=== PATIENT | male | born 1955 | race Caucasian/White ===

== ENCOUNTER 2016-08-28 22:52 | Inpatient (IN) | payer BC, MEDICARE ==
--- NOTE | ~2016-08-28 | FU ---
[facility] Nutrition Therapy DATE: 09/01/16 Patient: PRISCILLA FERNANDEZ Physician: ASHLYN Address: [address] Room/Bed: [address], Zip: [place] [address] Admit Date: 08/28/16 Date of : 59 Height: 6 0 Weight: 224 102 NUTRITION MONITORING/FOLLOW-UP: Reason: ADDENDUM TO PREVIOUS RECOMMENDATIONS/ NOTE FROM YESTERDAY 09/02 Labs: Accuchecks 158-181 (only nutritional labs updated since note 08/31) Meds: Zofran, protonix, novolog, NaCl I&O's: 1388/1351, last BM 08/31 Assessment: Chart reviewed, events noted. RD spoke with SENIOR UI WEB DEVELOPER who reports that the pt failed his LOCAL DELIVERY DRIVER re-evaluation this AM. LOCAL DELIVERY DRIVER recommends that the pt is NPO at this time, and DHT to be placed per SENIOR UI WEB DEVELOPER report. Enteral nutrition recommendations requested. RD also spoke with LOCAL DELIVERY DRIVER, who reports that the pt may require a PEG and continued LOCAL DELIVERY DRIVER. Of note, the pt was reportedly tolerating PO intake yesterday. Please see below. Recommendations: 1. Once enteral access is obtained, start Glucerna 1.5 @ 20 mL/hr + 30 mL Prostat once daily. Increase by 10 mL q 6 hrs as tolerated to goal of 50 mL/hr + 30 mL Prostat once daily. This will provide: 1900 kcals/ 114 grams protein/ 911 mL free H20 2. Continue LOCAL DELIVERY DRIVER evaluation as appropriate to determine the least restrictive diet tolerated by the pt. Status: Pt is at moderate nutritional risk. RD will continue to follow per protocol. Respectfully, RON BOYD RD, LD Food and Nutritional Services [facility] cc: client file
--- NOTE | ~2016-08-28 | US37 ---
[facility] A Service of [facility] RADIOLOGY TEXT RESULTS PATIENT: PRISCILLA FERNANDEZ LOCATION: [address]22 : [birth year] UNIT #: [id number] AGE: [address]: Yon Stubbs MD SEX: M ORDER DR: [id number] [facility] [address] [place], [place] [address] [id number] I MR#: [id number] #: [id number] NAME: PRISCILLA FERNANDEZ. : 1955 SEX: M STUDY DATE/TIME: 08/29/2016 15:16 UNIT: [facility] ROOM: [facility] STUDY DESCRIPTION: US Carotid W/Doppler Bilateral Attending Physician: Yon Stubbs M.D. Ordering Physician: Naomi Zavala M.D. Primary Care Physician: Jer Tyson M.D. MEDICAL IMAGING REPORT This report is preliminary unless electronic signature is present EXAM Ultrasound carotid Doppler bilateral. HISTORY Post-CVA, hypertension, diabetes, hyperlipidemia. CVA symptoms since 08/28/2016, with left side weakness and slurred speech at that time. COMMENT Real-time ultrasonography of the neck vessels performed centered at the level of the carotid bifurcations. COMPARISON Separate head CT 08/28 and 08/29/2016. Previous carotid Doppler ultrasound pending buddhism from 2006. FINDINGS There is at least partially calcified plaque in the right carotid system at the distal common carotid artery bulb, proximal internal and external carotid arteries. Peak systolic velocity in the right common carotid artery 0.72 m/sec measured midportion. Peak systolic velocity right internal carotid artery measured midportion is 1.21 m/sec with end-diastolic velocity of 0.24 m/sec. Peak systolic velocity right external carotid artery is 1.24 m/sec and peak systolic velocity right vertebral artery 0.28 m/sec with antegrade flow. Evaluation of the left carotid system shows partially calcified plaque distal left common carotid artery bulb, proximal internal and external carotid arteries. Peak systolic velocity measured in the left common carotid artery midportion 0.62 m/sec. Peak systolic velocity measured left internal carotid artery proximally 0.79 m/sec with end-diastolic velocity of 0.19 m/sec. Peak systolic velocity left ECA is 1.33 m/sec and peak systolic velocity STS. [facility] A Service of [facility] RADIOLOGY TEXT RESULTS PATIENT: PRISCILLA FERNANDEZ LOCATION: [facility]3 C[facility]3-22 : 59 UNIT #: [id number] AGE: [address]: Yon Stubbs MD SEX: M ORDER DR: left vertebral artery is 0.27 m/sec. IC:CC ratio on the right is 1.6 and on the left is 1.3. IMPRESSION 1. There is plaque at the bilateral carotid bifurcations. By NASCET criteria, there is less than 50% diameter stenosis at the carotid bifurcations. Disease is worse overall to the right than the left. Both vertebral arteries are patent with antegrade flow in their visualized portions. STAT * RESULT Dictated by... Teresa Robbins M.D. THIS IS AN ELECTRONICALLY VERIFIED REPORT Teresa Robbins M.D. at 08/29/2016 7:12 PM Tea TD: 08/29/2016 16:40 JOB #: [id number] MEDICAL IMAGING REPORT Page 1 of 1 COPY
--- NOTE | ~2016-08-28 | FU ---
[facility] Nutrition Therapy DATE: 09/04/16 Patient: PRISCILLA FERNANDEZ Physician: ASHLYN [address] Room/Bed: [address], Zip: [place] [address] Admit Date: 08/28/16 Date of : [birth year] Height: 6 0 Weight: 224 102 NUTRITION MONITORING/FOLLOW-UP: Reason: PT SEEN FOR FOLLOW-UP/ENTERAL NUTRITION SUPPORT DX: CVA Anthropometrics: 6'0", WT: 224# (102 KG), BMI: 30.4 -ADMIT WEIGHT: 226# (103 KG) Labs: GLU: 217, BUN: 29, CREAT: 2.2, ALB: 3.1, NA+:153 Meds: NACL, MIRALAX, LAXATIVE, PROTONIX, ZOFRAN, NOVOLOG I&O's: 9394/4931 Skin: ABRASION (L) FOREARM-PREVIOUSLY NOTED Estimated Nutrition Needs: [phone] KCAL 113-144 G PRO Assessment: CHART REVIEWED AND EVENTS NOTED. PT SEEN FOR FOLLOW-UP. PT ASLEEP AT TIME OF VISIT. FAMILY AT BEDSIDE. EN OFF AT THIS TIME 2' RESP DISTRESS NOTED. PLANS IN PLACE TO RE-START EN GLUCERNA 1.5 (RECOMMENDED BY RD ON 09/01/16). OF NOTE, TOMB MAKER HELPER FOLLOWING AND DEEMS PT NOT APPROPRIATE FOR DIET ADVANCEMENT 2' ?ASPIRATION PNA. FAMILY REPORTED NO DIET QUESTIONS AT THIS TIME. RD TO CONTINUE TO FOLLOW. Dx: INADEQUATE PROTEIN-ENERGY INTAKE R/T CHEWING/SWALLOWING DIFFICULTIES AEB TOMB MAKER HELPER CHANTELLE, RN REPORT PT CONSUMING ~30-50% OF MEALS.-ACTIVE NEW DX: INADEQUATE PROTEIN-ENERGY INTAKE R/T CURRENT CLINICAL CONDITION, ?ASP PNA AEB PT RECEIVING EN. Intervention: 1. EN OFF AT THIS TIME Monitoring, Evaluation and Goals: 1. ORAL INTAKE; CONSUME >50% OF MEALS AND SUPPLEMENTS-NOT MET 2. IMPROVE LABS; WNL-ACTIVE/IN PROGRESS 3. WEIGHTS; PREVENT UNINTENTIONAL WEIGHT LOSS-IN PROGRESS NEW GOALS: 1. ENTERAL NUTRITION; PROVIDE ~80-100% ESTIMATED NUTRIENT NEEDS AT GOAL 2. ORAL INTAKE; ADVANCE DIET PER TOMB MAKER HELPER AND CONSUME >50% OF MEALS W/NO C/O N/V/D [facility] Nutrition Therapy DATE: 09/04/16 Patient: PRISCILLA FERNANDEZ Physician: ASHLYN [address] Room/Bed: [address], Zip: [place] [address] Admit Date: 08/28/16 Date of : [birth year] Height: 6 0 Weight: 224 102 MONITOR: -TF RATE/RESIDUALS -WEIGHTS -TOMB MAKER HELPER RE-EVAL -LABS Recommendations: 1. ONCE MEDICALLY FEASIBLE, INITIATE ENTERAL NUTRITION SUPPORT OF GLUCERNA 1.5 @ 20 ML/HR, ADVANCE 10 ML q 6 HOURS TO GOAL RATE OF 50 ML/HR + SUGAR-FREE PROSTAT ONCE DAILY -PROVIDES 1900 KCAL, 114 G PRO, 912 ML FREE H20 ADD FREE H20 FLUSHES PER MD 2' HYPERNATREMIA NOTED 2. CONTINUE TOMB MAKER HELPER EVALUATION APPROPRIATE TO DETERMINE LESS RESTRICTIVE DIET TOLERATED BY PT RD WILL F/U PER PROTOCOL PT IS MODERATELY COMPROMISED Respectfully, ALVINA RODRIGUEZ MS, RD, LD Food and Nutritional Services [facility] cc: client file
--- NOTE | ~2016-08-28 | CT71 ---
[facility] A Service of [facility] RADIOLOGY TEXT RESULTS PATIENT: PRISCILLA FERNANDEZ [facility] UNIT #: [id number] AGE: [address]: Yon Stubbs MD SEX: M ORDER DR: [id number] [facility] [address] [facility]. [place], [place] [address] [id number] I MR#: [id number] Acc #: [id number] NAME: PRISCILLA FERNANDEZ. : 1955 SEX: M STUDY DATE/TIME: 09/03/2016 15:05 UNIT: [facility]2 ROOM: [facility] STUDY DESCRIPTION: CT Head Wo Contrast Attending Physician: Yon Stubbs M.D. Ordering Physician: Mary Teixeira M.D. Primary Care Physician: Jer Tyson M.D. MEDICAL IMAGING REPORT This report is preliminary unless electronic signature is present EXAM Noncontrast head CT. HISTORY 60-year-old male new onset confusion post CVA. COMPARISON 09/02/[address] exam was performed with one or more of the following radiation dose reduction techniques: automatic exposure control, adjustment of mA and/or kV according to patient size, and iterative reconstruction. FINDINGS Axial noncontrast imaging of the brain demonstrates a large focus of decreased attenuation in the distribution of the right middle cerebral artery compatible with a large acute or subacute MCA distribution infarct. There is involvement of the right head of the caudate and right basal ganglia. There is some very subtle increased attenuation along the sulci, but no definite hemorrhagic transformation. There is some mass effect with effacement of the right lateral ventricle but no midline shift. Generalized atrophy. Bony calvaria skull base unremarkable. IMPRESSION Acute or subacute MCA distribution infarct involving the right cerebral hemisphere with mild mass effect on the right lateral ventricle but no midline shift. No hemorrhagic transformation. No significant change from 09/02/2016. [facility] A Service of [facility] RADIOLOGY TEXT RESULTS PATIENT: PRISCILLA FERNANDEZ [facility] UNIT #: [id number] AGE: [address]: Yon Stubbs MD SEX: M ORDER DR: Dictated by... Jayme Brice M.D. THIS IS AN ELECTRONICALLY VERIFIED REPORT Jayme Brice M.D. at 09/03/2016 10:34 PM Mehdi TD: 09/03/2016 16:27 JOB #: [id number] MEDICAL IMAGING REPORT Page 1 of 1 COPY
--- NOTE | ~2016-08-28 | CT72 ---
[facility] A Service of [facility] RADIOLOGY TEXT RESULTS PATIENT: PRISCILLA FERNANDEZ [address] 59 UNIT #: [id number] AGE: [address]: Yon Stubbs MD SEX: M ORDER DR: [id number] [facility] [address] [facility]. [place], [place] [address] [id number] I MR#: [id number] Acc #: [id number] NAME: PRISCILLA FERNANDEZ : 1955 SEX: M STUDY DATE/TIME: 08/28/2016 22:57 [facility] [address] STUDY DESCRIPTION: CT Head Wo Contrast Stroke Attending Physician: Willie Mahoney M.D. Ordering Physician: Luan Johns D.O. Primary Care Physician: Jer Tyson M.D. MEDICAL IMAGING REPORT This report is preliminary unless electronic signature is present EXAM Head CT 08/28/2016 22:57 INDICATION Slurred speech and left side weakness since 09:00 p.m. this evening. FINDINGS Axial images were obtained from the base to the vertex without contrast. Comparison made with 05/23/2006. This CT examination was performed with one or more of the following radiation dose reduction techniques: automatic exposure control, adjustment of mA and/or kV according to patient size, and iterative reconstruction. There is generalized atrophy. Ventricular size and configuration are within normal limits. Chronic small vessel ischemic changes are present in the white matter. There is no acute infarct or hemorrhage. There are no masses. There are atherosclerotic calcifications in the carotid siphons. No skull fractures. IMPRESSION Atrophy with chronic changes in the white matter. No acute abnormalities. Dictated by... Preston Cain Jr., M.D. THIS IS AN ELECTRONICALLY VERIFIED REPORT Preston Cain Jr., M.D. at 08/29/2016 9:12 PM SRINI/len TD: 08/29/2016 07:02 JOB #: [id number] [facility] A Service of [facility] RADIOLOGY TEXT RESULTS PATIENT: PRISCILLA FERNANDEZ LOCATION: [facility] 59 UNIT #: [id number] AGE: [address]: Yon Stubbs MD SEX: M ORDER DR: MEDICAL IMAGING REPORT Page 1 of 1 COPY
--- NOTE | ~2016-08-28 | CO ---
Unit #: [id number] #: [id number] Patient: PRISCILLA BROOKS [id number] [facility]. [place] [id number] [facility]. [place], [place] [address] [id number] I MR#: [id number] NAME: PRISCILLA BROOKS. ROOM: [facility] Age: 60 Sex: M Admission Date: 08/28/2016 : 1955 Attending Physician: Yon Stubbs M.D. Primary Care Physician: Jer Tyson M.D. CONSULTATION REPORT CHIEF COMPLAINT Left-sided weakness and numbness. HISTORY OF PRESENT ILLNESS Mr. Brooks is a 60-year-old gentleman with a history of diabetes, hypertension, hyperlipidemia, chronic renal insufficiency, gastroesophageal reflux, benign prostatic hypertrophy, and obesity, who was admitted after he developed sudden onset of left-sided weakness and numbness around 8 p.m. yesterday. The patient arrived in the emergency room around [address] was obtained, which was negative and the patient received tPA around 10:50 p.m. Unfortunately, this did not result in any improvement. The patient is now admitted to the intensive care unit and continues to be weak and numb on the left side. REVIEW OF SYSTEMS GENERAL: Positive for overall decline. SKIN: Negative. HEENT: Negative. PULMONARY: Negative. CARDIOVASCULAR: Negative. GI: Positive for reflux. : Positive for urinary retention. MUSCULOSKELETAL: Positive for back pain, neck pain. NEUROLOGIC: Positive for left-sided weakness, numbness, neglect. PSYCHIATRIC: Positive for depression. PAST MEDICAL HISTORY As above and also positive for bladder stimulator, cervical spine fusion from C4 to C6, lumbar spine surgery, left knee replacement. SOCIAL HISTORY Negative for current tobacco, alcohol, or illicit drugs, however, he did smoke 2 packs per day until a year ago. FAMILY HISTORY Negative for stroke, but both parents have history of peripheral arterial disease. PHYSICAL EXAMINATION GENERAL: He is of obese appearance. HEART: Sounds are regular. NECK: There are no carotid bruits. LUNGS: Baeza are clear. EXTREMITIES: There is no peripheral edema. Unit #: [id number] #: [id number] Patient: PRISCILLA BROOKS VITAL SIGNS: Blood pressure 133/97, pulse 83, respirations 22, temperature 97.8. NEUROLOGIC: He is drowsy, but easily awakes up. He is oriented x3. He has intact language, fluency, and comprehension. Fund of knowledge is average. Memory and attention span are impaired and he has left hemineglect. Visual baeza are full. There is no papillary edema. Extraocular muscles are intact. Pupils are equal, round, and reactive to light. Facial sensation and movements are decreased on the left. Hearing to conversation speech is normal. Palate elevates symmetrically. Trapezius full strength on the right. 2+ strength on the left. Tongue protrudes midline. He is slightly dysarthric. Strength is full on the right. He has 2+ strength in the left upper and lower extremities. Muscle tone is slightly increased on the left. Muscle bulk is normal. Sensation is decreased on the left and he is unable to feel his left arm or left leg, so I am unable to perform any coordinated movement on the left, unable to ambulate. Reflexes are 1+ on the right, 3+ on the left. DIAGNOSTIC STUDIES IMAGING STUDIES: I personally reviewed his head CT and it is negative for any acute abnormalities. Repeat head CT is also negative. ASSESSMENT AND PLAN In summary, Mr. Brooks has suffered right MCA distribution stroke. His NIH stroke scale score is 13. Unfortunately, there was no improvement after tPA. He also has some hematuria after receiving tPA. We will follow post tPA protocol and start antiplatelet therapy tomorrow if his hematuria clears. We will also repeat a head CT 24 hours after he received tPA. Order a carotid ultrasound study and a 2D echocardiogram. We will ask PT/OT and Speech Therapy to evaluate. Further recommendations will be as per test results. Dictated by... Vishal Estrella/rachel TD: 08/29/2016 23:01 JOB #: [id number] CONSULTATION REPORT Page 1 of 1 X Naomi Zavala MD CONSULTATION REPORT
--- NOTE | ~2016-08-28 | CT71 ---
[facility] A Service of [facility] RADIOLOGY TEXT RESULTS PATIENT: PRISCILLA FERNANDEZ [facility]- : 59 UNIT #: [id number] AGE: [address]: Yon Stubbs MD SEX: M ORDER DR: [id number] [address] [address] [id number] I MR#: [id number] Acc #: [id number] NAME: PRISCILLA FERNANDEZ : 1955 SEX: M STUDY DATE/TIME: 09/01/2016 7:41 UNIT: [facility] ROOM: [facility] STUDY DESCRIPTION: CT Head Wo Contrast Attending Physician: Yon Stubbs M.D. Ordering Physician: Yon Stubbs M.D. Primary Care Physician: Jer Tyson M.D. MEDICAL IMAGING REPORT This report is preliminary unless electronic signature is present EXAM Head CT without contrast 09/01/2016 COMPARISON 08/31/2016 PROCEDURE Axial unenhanced head CT. This CT exam was performed with one or more of the following radiation dose reduction techniques: automatic exposure control, adjustment of mA and/or kV according to patient size, and iterative reconstruction. HISTORY Follow up right MCA territory infarct with new lethargy today. FINDINGS Redemonstrated extensive right hemispheric MCA territory infarct with mild petechial hemorrhagic conversion. No substantial change in extent of lesion, amount of petechial hemorrhage, or mass effect. No new abnormality is seen. IMPRESSION Stable minimally hemorrhagic right MCA territory infarct, slight petechial hemorrhage within the infarct but no new or increase in hemorrhage, no change in mass effect, no change in extent of lesion seen since 08/31/2016. Dictated by... Yung Ryan M.D. [facility] A Service [facility] RADIOLOGY TEXT RESULTS PATIENT: PRISCILLA FERNANDEZ [facility]ATION: [facility] 311- : 59 UNIT #: [id number] AGE: [address]: Yon Stubbs MD SEX: M ORDER DR: THIS IS AN ELECTRONICALLY VERIFIED REPORT Yung Ryan M.D. at 09/02/2016 1:19 PM OSCAR/maru TD: 09/01/2016 09:22 JOB #: [id number] MEDICAL IMAGING REPORT Page 1 of 1 COPY
--- NOTE | ~2016-08-28 | DS ---
Unit #: [id number] #: [id number] Patient: PRISCILLA FERNANDEZ [id number] [address] [address] [id number] Mickey MR#: [id number] NAME: PRISCILLA FERNANDEZ ROOM: 308 Age: 60 Sex: M Admission Date: 08/28/2016 : 1955 Discharge Date: 09/08/2016 Attending Physician: Yno Stubbs M.D. Primary Care Physician: Jer Tyosn M.D. DISCHARGE SUMMARY ADDENDUM Since the time of the last dictation, patient had planned and had been accepted to inpatient hospice and will be under their care. I was called into the patient's room around 10:15 this morning. Patient had . Dictated by.Darling. Maryanne Kasper PA-C for Vishal Iyer/marco TD: 09/09/2016 08:01 JOB #: [id number] DISCHARGE SUMMARY Page 1 of 1 X X DISCHARGE SUMMARY
--- NOTE | ~2016-08-28 | CT71 ---
[facility] A Service of [facility] RADIOLOGY TEXT RESULTS PATIENT: PRISCILLA FERNANDEZ LOCATION: [facility] 311-01 : 59 UNIT #: [id number] AGE: [address]: Yon Stubbs MD SEX: M ORDER DR: [id number] [facility] [address] [facility]. [place], [place] [address] [id number] I MR#: [id number] Acc #: [id number] NAME: PRISCILLA FERNANDEZ : 1955 SEX: M STUDY DATE/TIME: 08/31/2016 9:12 UNIT: [facility] ROOM: [facility] STUDY DESCRIPTION: CT Head Wo Contrast Attending Physician: Yon Stubbs M.D. Ordering Physician: Yon Stubbs M.D. Primary Care Physician: Jer Tyson M.D. MEDICAL IMAGING REPORT This report is preliminary unless electronic signature is present EXAM Head CT, no contrast, dated 08/31/2016 PROCEDURE Axial unenhanced head CT. This CT exam was performed with one or more of the following radiation dose reduction techniques: automatic exposure control, adjustment of mA and/or kV according to patient size, and iterative reconstruction. COMPARISON Prior head CT 08/29/2016 CLINICAL HISTORY Left side weakness and slurred speech, status post TPA infusion. FINDINGS There is very slight petechial hemorrhage within the extensive right MCA territory infarct. Area of involvement appears substantially larger than initially suggested by the head CT on 08/29/2016. There is no masslike hemorrhage. Midline shift is barely perceptible but mass effect is clearly increased since 08/29/2016. There are underlying chronic small vessel type white matter changes which appear minimal. IMPRESSION More extensive right hemispheric infarct is evident when compared to the initial head CT, with involvement more confluently of a broader area of a right MCA territory including the right caudate head. There is mild petechial hemorrhagic conversion but no masslike hemorrhage. There is local sulcal effacement and barely perceptible leftward midline shift. No [facility] A Service [facility] RADIOLOGY TEXT RESULTS PATIENT: PRISCILLA FERNANDEZ LOCATION: [facility] 311-01 : 59 UNIT #: [id number] AGE: [address]: Yon Stubbs MD SEX: M ORDER DR: contralateral ischemic injury is seen. Dictated by... Yung Ryan M.D. THIS IS AN ELECTRONICALLY VERIFIED REPORT Yung Ryan M.D. at 09/02/2016 1:22 PM OSCAR/octavia TD: 08/31/2016 13:12 JOB #: [id number] MEDICAL IMAGING REPORT Page 1 of 1 COPY
--- NOTE | ~2016-08-28 | CT72 ---
[facility] A Service of [facility] RADIOLOGY TEXT RESULTS PATIENT: PRISCILLA FERNANDEZ LOCATION: [address] : 59 UNIT #: [id number] AGE: [address]: Yon Stubbs MD SEX: M ORDER DR: [id number] [facility] [address] [facility]. [place], [place] [address] [id number] I MR#: [id number] Acc #: [id number] NAME: PRISCILLA FERNANDEZ. : 1955 SEX: M STUDY DATE/TIME: 08/29/2016 02:30 UNIT: [facility] ROOM: [facility] STUDY DESCRIPTION: CT Head Wo Contrast Stroke Attending Physician: Yon Stubbs M.D. Ordering Physician: Luan Johns D.O. Primary Care Physician: Jer Tyson M.D. MEDICAL IMAGING REPORT This report is preliminary unless electronic signature is present EXAM Head CT 08/29/2017 02:30 INDICATION New left-sided weakness and slurred speech. Symptoms worsening since the previous scan earlier in the evening. Patient is status post TPA administration. FINDINGS Axial images were obtained from the base to the vertex without contrast. Comparison made with 08/28/2016 at 22:57. [address] CT examination was performed with one or more of the following radiation dose reduction techniques: automatic exposure control, adjustment of mA and/or kV according to patient size, and iterative reconstruction. Atrophy is again seen with chronic small vessel ischemic disease in the white matter. Once again, no acute infarct or hemorrhage is seen. There are no masses. IMPRESSION No acute hemorrhage or stroke identified. No change from the recent prior exam. Dictated by... Preston Cain Jr., M.D. THIS IS AN ELECTRONICALLY VERIFIED REPORT Preston Cain Jr., M.D. at 08/29/2016 9:14 PM SRINI/len TD: 08/29/2016 10:50 [facility] A Service [facility] RADIOLOGY TEXT RESULTS PATIENT: PRISCILLA FERNANDEZ LOCATION: [facility] 59 UNIT #: [id number] AGE: [address]: Yon Stubbs MD SEX: M ORDER DR: JOB #: [id number] MEDICAL IMAGING REPORT Page 1 of 1 COPY
--- NOTE | ~2016-08-28 | CO ---
Unit #: [id number] #: [id number] Patient: PRISCILLA FERNANDEZ [id number] [address] [address] [id number] I MR#: [id number] NAME: PRISCILLA FERNANDEZ. ROOM: 311 Age: 60 Sex: M Admission Date: 08/28/2016 : 1955 Attending Physician: Yon Stubbs M.D. Primary Care Physician: Jer Tyson M.D. CONSULTATION REPORT REASON FOR CONSULTATION Dysphagia, PEG tube placement. HISTORY OF PRESENTING ILLNESS Patient is a 60-year-old male who presented with left-sided weakness and was found to have an acute CVA. He is now having worsening dysphagia and we have been consulted for a PEG tube. Patient is arousable to voice; however, is somewhat lethargic. He denies any nausea, vomiting, or abdominal pain. PAST MEDICAL HISTORY Notable for chronic kidney disease, diabetes, hypertension, dyslipidemia, BPH, GERD, previous left total knee arthroplasty in 2005, bladder stimulator placement, and multiple back surgeries in the past. HOME MEDICATIONS 1. Levemir. 2. Flomax. 3. Lyrica. 4. Amitriptyline. 5. Bystolic. 6. Lipitor. 7. Macrobid. 8. Cyclobenzaprine. 9. Promethazine. 10. Protonix. 11. Oxycodone. ALLERGIES None known. SOCIAL HISTORY Patient is a reformed smoker x1 year. Denies tobacco and alcohol use. Patient lives at home with his . FAMILY HISTORY Notable for peripheral arterial disease. REVIEW OF SYSTEMS A complete 10-point review of systems was negative, except what was mentioned in the HPI. PHYSICAL EXAM GENERAL: Patient is a somewhat lethargic, 60-year-old, male who Unit #: [id number] #: [id number] Patient: PRISCILLA FERNANDEZ appears in no acute distress. VITAL SIGNS: Temperature is 100.3, pulse is 76, respirations 22, and blood pressure is elevated at 177/52. HEENT: PERRLA. NECK: Supple. CARDIAC: S1 and S2. LUNGS: Clear to auscultation. ABDOMEN: Soft, rounded, nontender, and nondistended. Positive bowel sounds. NEURO: Patient is lethargic, but arousable. DIAGNOSTIC STUDIES LABORATORY: Labs are from yesterday. Glucose is 153; BUN and creatinine are 21 and 2.3, respectively; otherwise, chemistry is normal. White count is 14.1 yesterday, hemoglobin is 11.1, hematocrit 34.4, and platelets are 379. ASSESSMENT AND PLAN 1. Worsening dysphagia. Will plan PEG tube placement for tomorrow. Continue NPO status for now. 2. Acute CVA. Management per neurology. Thank you for this interesting consult and will continue to follow along. Dictated by... Bebe Villa A.P.R.N. for Vishal Cabello/marco TD: 09/02/2016 06:53 JOB #: [id number] CONSULTATION REPORT Page 1 of 1 X X CONSULTATION REPORT
--- NOTE | ~2016-08-28 | OR ---
Unit #: [id number] #: [id number] Patient: PRISCILLA FERNANDEZ [id number] [facility]. [place], [place] [address] [id number] I MR#: [id number] NAME: PRISCILLA FERNANDEZ ROOM: 311 Date of Procedure: 09/02/2016 Admission Date: 08/28/2016 Surgeon: Amilcar Mondragon M.D. : 1955 Attending Physician: Yon Stubbs M.D. Primary Care Physician: Jer Tyson M.D. OPERATIVE REPORT PROCEDURE PERFORMED Esophagogastroduodenoscopy with percutaneous endoscopic gastrostomy tube placement. INDICATIONS FOR PROCEDURE The patient with recent stroke, now with dysphagia and aspiration risk, undergoing evaluation with EGD and possible PEG tube placement. MEDICATIONS Monitored anesthesia. POSTOPERATIVE FINDINGS 1. Normal esophagus. 2. Mild gastritis. It appears the patient may have had previous antrectomy. 3. Normal duodenum and distal duodenum. 4. Successful placement of PEG tube by push method. PLAN Please see inpatient orders for details. DESCRIPTION OF PROCEDURE The patient was explained of the procedure, risks, and benefits along with risks and benefits of anesthesia. He was brought to the endoscopy room. Propofol anesthesia was given. Bite block was placed. The scope was passed down the mouth into the esophagus, stomach, duodenum, and distal duodenum. Exam was completed. A spot was identified for G-tube now at this point with indentation and transillumination. Skin was prepped. Small incision was made after local anesthetic was given. Trocar cannula was then passed through this incision. A guidewire passed through this trocar and pulled out of the patient's mouth using the scope and the snare from the inside. A push method tube was then pushed over the wire, pulled out of the anterior abdominal wall, where it was secured with an external bumper. The scope was reintroduced to look at the inner bumper, which was nicely in place. Gently, it was pulled out. He tolerated it well. Dictated by... Vishal Cabello/rachel Unit #: [id number] #: [id number] Patient: PRISCILLA FERNANDEZ TD: 09/02/2016 22:28 JOB #: [id number] OPERATIVE REPORT Page 1 of 1 X Amilcar Mondragon MD PROCEDURE OPERATIVE NOTE
--- NOTE | ~2016-08-28 | DS ---
Unit #: [id number] #: [id number] Patient: PRISCILLA FERNANDEZ [id number] [address] [address] [id number] I MR#: [id number] NAME: PRISCILLA FERNANDEZ ROOM: 308 Age: 60 Sex: M Admission Date: 08/28/2016 : 1955 Discharge Date: 09/07/2016 Attending Physician: Yon Stubbs M.D. Primary Care Physician: Jer Tyson M.D. DISCHARGE SUMMARY DISCHARGE DIAGNOSES 1. 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 2. Sepsis either due to urine or aspiration pneumonia. 3. Acute kidney injury with chronic stage 3 kidney disease. 4. Dysphagia. 5. Left-sided hemiparesis. 6. Type 2 diabetes. 7. Essential hypertension. 8. Dyslipidemia. 9. Benign prostatic hypertrophy. 10. Gastroesophageal reflux disease. CONSULTANTS 1. Dr. Zavala and Dr. Teixeira of neurology. 2. Dr. Mondragon of gastroenterology. 3. Dr. Huang Reece and Dr. Jenkins of pulmonary. 4. Dr. Boudreaux of urology. PROCEDURES Patient had PEG placement by Dr. Mondragon on 09/02/16 due to dysphagia. DIAGNOSTIC STUDIES IMAGING: CT head without contrast, 08/28/16. Impression - No acute abnormalities. CT head again on 08/28/16. Impression - No change from the recent prior exam. Bilateral carotid ultrasound on . Impression - Plaque bilaterally at the carotid bifurcations, less than 50% diameter stenosis. CT head without contrast on 08/29/16. Impression - Large right MCA distribution subacute infarct. No associated hemorrhage or mass effect. Chest x-ray, 08/30/16. Impression - No acute findings and no active disease in the chest. Chest CT, 08/31/16. Impression - Clear. No pneumothorax. Head CT, 08/31/16. Impression - More extensive right hemispheric infarct. Mild petechial hemorrhage conversion but no masslike hemorrhage. No contralateral ischemic injury is seen. Head CT, 09/01/16. Stable minimally hemorrhagic right MCA territory Unit #: [id number] #: [id number] Patient: PRISCILLA FERNANDEZ infarct. Slight petechial hemorrhage within the infarct but no new or increase in hemorrhage. No change in mass effect. No change in extent of lesion. X-ray abdomen, 09/01/16. Dobbhoff in good position. Head CT on 09/02/16. Impression - Large right MCA distribution infarct is unchanged. CT chest, 09/03/16. Impression - Chronic interstitial opacities in both lungs. Minimal basilar atelectasis. No focal consolidation. Abnormal appearance of left kidney. CT, 09/03/16. Acute to subacute MCA distribution infarct involving the right cerebral hemisphere with mild mass effect in the right lateral ventricle but no midline shift. No hemorrhagic transformation. No significant change. CT abdomen and pelvis, 09/03/16. Impression - Diffuse fatty infiltration of the liver. Mild nonspecific perinephric stranding and mild bilateral hydronephrosis and hydroureter. Perinephric stranding can be seen with chronic renal disease. Mild hydro demonstrates no identifiable etiology. Velez catheter is seen within the decompressed bladder. Small calcification noted adjacent to the catheter, probably within the soft tissues. Ureteral stone considered less likely. L1 compression fracture, which appears chronic. CT head, 09/05/16. Impression - Stable appearance of subacute large right MCA distribution infarct with diffuse low density change throughout the infarcted territory and associated sulcal effacement indicating persistent edema. Minimal curvilinear areas of relative increased attenuation within the infarct suggest minimal associated petechial cortical hemorrhage, and these are unchanged compared to 09/01/2016. Stable infarcts extension into the right caudate head and body and adjacent right periventricular deep white matter. HOSPITAL COURSE Patient is a pleasant 60-year-old male with past medical history of chronic kidney disease, diabetes, essential hypertension, dyslipidemia, BPH, GERD. Patient self cathed at home following right knee arthroplasty about 2 years ago. Was brought to the emergency room due to left-sided weakness, which was sudden onset in nature, as well as ataxia. CT head was done, which was negative, but due to the patient's significant neurological exam, TPA was administered under the recommendations of neurology. Patient is unable to do an MRI because he does have history of bladder stimulator, and it was questionable if it was compatible with an MRI machine. CTA was not done secondary to chronic kidney disease with increased creatinine of 2.9. Patient was admitted for left-sided hemiparesis due to right MCA. Was seen in consultation with neurology. Patient's neurological exam would wax and wane with some improvement at times and no improvement at other times. A NATHAN was done, which was technically very limited study. Valves were not visualized. The left ventricular systolic function is (1) estimated ejection fraction of 55% to 60%. Bubble study was performed. No shunt was noted across the interatrial septum. Mild mitral regurgitation was present. Small pericardial effusion versus fat tissue. Bilateral carotid ultrasound was done given his inability to receive contrast, which Unit #: [id number] #: [id number] Patient: PRISCILLA FERNANDEZ had minimal plaque disease of less than 50%. Dr. Zavala of neurology felt it was best at that time to focus on recuperation in terms of rehab. Dr. Mondragon of gastroenterology was consulted given the patient's waxing neurological status and inability to safely swallow. A PEG tube was placed by Dr. Mondragon on 09/02/16, which was successful. Patient then started to develop low-grade fever. Patient, at first, did not require oxygen with breath sounds unremarkable. X-ray revealed no infiltrate. Blood culture and urine culture were all negative without growth. We initially did not start patient on antibiotics, but following the PEG tube placement, patient had significant fever documented at 101, as well as worsening mental status. Many repeat head CTs were done to evaluate for possible encephalomalacia or intracranial edema, which was not evident. This was truly difficult to further assess due to the patient's bladder stimulator, which was not compatible with the MRI. Dr. Boudreaux of urology was consulted given the patient's high fever, as well as gross hematuria in the Velez. Dr. Boudreaux thought that there was too much risk to proceed with any stents; therefore, patient did not undergo any treatment for stones. CT abdomen and pelvis was done, which had findings stated above. With the patient's persistent encephalopathy and CT head with slow progressive evidence of small hemorrhagic conversion, it was, therefore, felt best, under neurology's recommendation, to transfer patient to [facility] where an MRI could be performed, but at this time, patient's status continues to decline. It was eventually decided by his that it is in the patient's best interest that we continue with comfort measure care only, as she states that the patient would never want to live in this state with hemiparesis, tube feeds and bedridden. Therefore, at this time, manufacturing planner is planning to meet with Hospice for patient to be transferred to inpatient Hospice under their care. DISCHARGE CONDITION/DISPOSITION Stable to inpatient Hospice. DISCHARGE MEDICINES 1. Robinul 0.4 mg IV q.4 hours as needed for increase in secretions. 2. Ativan 1 mg IV q.2 hours as needed for agitation and/or anxiety. 3. Morphine 2-4 mg IV q.2 hours as needed for pain. NOTE: This dictation took 45 minutes, including patient education and to coordinate care. Dictated by... Maryanne Kasper PA-C for Vishal Iyer/monisha TD: 09/07/2016 11:07 JOB #: [id number] Unit #: [id number] #: [id number] Patient: PRISCILLA FERNANDEZ DISCHARGE SUMMARY Page 1 of 1 X X DISCHARGE SUMMARY
--- NOTE | ~2016-08-28 | EKG ---
PATIENT: PRISCILLA FERNANDEZ UNIT #: [id number] Ventricular Rate: 71 BPM Atrial Rate: 71 BPM P-R Interval: 168 ms QRS Duration: 84 ms Q-T Interval: 408 ms QTC Calculation(Bezet): 443 ms P Boston: 78 degrees Calculated R Boston: 59 degrees Calculated T Boston: 42 degrees Diagnosis Line: Motion artifact Diagnosis Line: ST no longer elevated in Inferior leads Diagnosis Line: Confirmed by PRO LINARES MD ([id number]) on Diagnosis Line: 08/31/2016 8:34:44 AM INTERPRETING MD: MILAGROS SANTAMARIA
--- NOTE | ~2016-08-28 | CT71 ---
[facility] A Service of [facility] RADIOLOGY TEXT RESULTS PATIENT: PRISCILLA FERNANDEZ LOCATION: [facility] SAULT : 59 UNIT #: [id number] AGE: [address]: Yon Stubbs MD SEX: M ORDER DR: [id number] [facility]. [place], [place] [address] [id number] I MR#: [id number] Acc #: [id number] NAME: PRISCILLA FERNANDEZ : 1955 SEX: M STUDY DATE/TIME: 09/02/2016 19:17 UNIT: A PCU ROOM: [facility] STUDY DESCRIPTION: CT Head Wo Contrast Attending Physician: Yon Stubbs M.D. Ordering Physician: Mary Teixeira M.D. Primary Care Physician: Jer Tyson M.D. MEDICAL IMAGING REPORT This report is preliminary unless electronic signature is present EXAM CT head INDICATIONS Weakness for 5 days. Right MCA distribution infarct. TECHNIQUE CT of the head without contrast. This CT exam was performed with one or more of the following radiation dose reduction techniques: automatic control, adjustment of mA and/or kV according to patient size, and iterative reconstruction. COMPARISON CT head dated 09/01/2016 and 08/31/2016. FINDINGS A large distribution right MCA infarct is unchanged from the prior study. The infarct involves portions of the right temporal lobe, large portion of the right frontal lobe, and a large portion of the right parietal lobe. No hemorrhagic transformation. The infarct extends into the right basal ganglia and right caudate. Ventricles and basilar cisterns are within normal limits. There is no midline shift. There is no extraaxial collections. IMPRESSION 1. Large right MCA distribution infarct is unchanged from the 09/01/2016 comparison. Dictated by... Ramirez Long M.D. THIS IS AN ELECTRONICALLY VERIFIED REPORT [facility] A Service of [facility] & [facility] RADIOLOGY TEXT RESULTS PATIENT: PRISCILLA FERNANDEZ LOCATION: [facility] SAULT : 59 UNIT #: [id number] AGE: [address]: Yon Stubbs MD SEX: M ORDER DR: Ramirez Long M.D. at 09/02/2016 9:46 PM RPC/rnr TD: 09/02/2016 20:28 JOB #: [id number] MEDICAL IMAGING REPORT Page 1 of 1 COPY
--- NOTE | ~2016-08-28 | CT71 ---
[facility] A Service of [facility] RADIOLOGY TEXT RESULTS PATIENT: PRISCILLA FERNANDEZ LOCATION: [place] [address]-22 : 59 UNIT #: [id number] AGE: [address]: Yon Stubbs MD SEX: M ORDER DR: [id number] [facility] [address]. [place], [place] [address] [id number] MR#: [id number] Acc #: [id number] NAME: PRISCILLA FERNANDEZ : 1955 SEX: M STUDY DATE/TIME: 08/29/2016 23:12 UNIT: [facility] ROOM: [facility] STUDY DESCRIPTION: CT Head Wo Contrast Attending Physician: Yon Stubbs M.D. Ordering Physician: Naomi Zavala M.D. Primary Care Physician: Jer Tyson M.D. MEDICAL IMAGING REPORT This report is preliminary unless electronic signature is present EXAM Head CT, 08/29 at 23:12 INDICATIONS Stroke, status post tPA. Slurred speech, left side weakness since last night. FINDINGS Axial images were obtained from the base to the vertex without contrast. Comparison made with head CT from 08/29/2016. This CT exam was performed with one or more of the following radiation dose reduction techniques: Automatic exposure control, adjustment of mA and/or kV according to patient size, and iterative reconstruction. There is a right subacute MCA distribution infarct now noted. This involves the temporal lobe and frontal lobe and probably a small portion of the parietal lobe. No evidence of hemorrhagic transformation. No mass effect is seen. Ventricular size and configuration remain normal. IMPRESSION Relatively large right MCA distribution subacute infarct. No associated hemorrhage or mass effect. Dictated by... Preston Cain Jr., M.D. THIS IS AN ELECTRONICALLY VERIFIED REPORT Preston Cain Jr., M.D. at 08/30/2016 9:22 PM SRINI/blanca TD: 08/30/2016 16:48 JOB #: [id number] [facility] A Service of [facility] RADIOLOGY TEXT RESULTS PATIENT: PRISCILLA FERNANDEZ [facility]ATION: [facility] UNIT #: [id number] AGE: [address]: Yon Stubbs MD SEX: M ORDER DR: MEDICAL IMAGING REPORT Page 1 of 1 COPY
--- NOTE | ~2016-08-28 | CT71 ---
[facility] A Service of [facility] & [facility] RADIOLOGY TEXT RESULTS PATIENT: PRISCILLA FERNANDEZ LOCATION: [facility] 308-01 : 59 UNIT #: [id number] AGE: [address]: Yon Stubbs MD SEX: M ORDER DR: [id number] [facility] [address]. [place], [place] [address] [id number] I MR#: [id number] Acc #: [id number] NAME: PRISCILLA FERNANDEZ : 1955 SEX: M STUDY DATE/TIME: 09/05/2016 14:10 UNIT: [facility] ROOM: [facility] STUDY DESCRIPTION: CT Head Wo Contrast Attending Physician: Yon Stubbs M.D. Ordering Physician: Mary Teixeira M.D. Primary Care Physician: Jer Tyson M.D. MEDICAL IMAGING REPORT This report is preliminary unless electronic signature is present EXAM CT brain without contrast. HISTORY Left-side weakness. Cerebral infarct, in the right MCA distribution, recently noted. Post tPA. TECHNIQUE This CT exam was performed with one or more of the following radiation dose reduction techniques: automatic exposure control, adjustment of mA and/or kV according to patient size, and iterative reconstruction. FINDINGS CT brain without contrast is compared to 09/03/2016, and demonstrates stable large subacute right MCA distribution infarct with predominately low-density change throughout the majority of the right MCA distribution, and several small curvilinear areas of relative increased attenuation within the infarcted distribution, suggesting probable minimal associated petechial hemorrhage, unchanged compared to 09/01/2016. The infarct involves the right caudate head and body as well, and adjacent deep white matter. No midline shift. Stable sulcal effacement within the right MCA infarct distribution indicating associated edema. IMPRESSION Stable appearance of subacute large right MCA distribution infarct with diffuse low density change throughout the infarcted territory and associated sulcal effacement indicating persistent edema. Minimal curvilinear areas of relative increased attenuation within the infarct suggest minimal associated petechial cortical hemorrhage, and these are unchanged compared to 09/01/2016. Stable infarcts extension into the right caudate head and body and adjacent right periventricular deep white matter. [facility] A Service of [facility] & [facility] RADIOLOGY TEXT RESULTS PATIENT: PRISCILLA FERNANDEZ LOCATION: A 308-01 : [birth year] UNIT #: [id number] AGE: [address]: Yon Stubbs MD SEX: M ORDER DR: Dictated by... Akshat Bhatia M.D. THIS IS AN ELECTRONICALLY VERIFIED REPORT Akshat Bhatia M.D. at 09/05/2016 10:36 PM WAQAR/zainab TD: 09/05/2016 16:34 JOB #: [id number] MEDICAL IMAGING REPORT Page 1 of 1 COPY
--- NOTE | ~2016-08-28 | CR6 ---
[facility] A Service of [facility] RADIOLOGY TEXT RESULTS PATIENT: PRISCILLA FERNANDEZ LOCATION: [facility] 311- : [birth year] UNIT #: [id number] AGE: [address]: Yon Stubbs MD SEX: M ORDER DR: [id number] [facility] [address] [place], [place] [address] [id number] I MR#: [id number] Acc #: [id number] NAME: PRISCILLA FERNANDEZ. : 1955 SEX: M STUDY DATE/TIME: 09/01/2016 17:28 UNIT: [address] ROOM: [facility] STUDY DESCRIPTION: CR Abdomen Portable Sng View Attending Physician: Yon Stubbs M.D. Ordering Physician: Amilcar Mondragon M.D. Primary Care Physician: Jer Tyson M.D. MEDICAL IMAGING REPORT This report is preliminary unless electronic signature is present EXAM Portable KUB HISTORY Dobbhoff tube placement. TECHNIQUE Single view of the abdomen was obtained. FINDINGS Dobbhoff tube tip is in good position over the mid stomach. The bowel gas pattern is normal. STAT * RESULT Dictated by... Preston Mccord M.D. THIS IS AN ELECTRONICALLY VERIFIED REPORT Preston Mccord M.D. at 09/01/2016 10:17 PM RLF/pcl TD: 09/01/2016 18:23 JOB #: [id number] MEDICAL IMAGING REPORT Page 1 of 1 COPY
--- NOTE | ~2016-08-28 | HP ---
Unit #: [id number] #: [id number] Patient: PRISCILLA FERNANDEZ [id number] [address] [place], [place] [address] [id number] I MR#: [id number] NAME: PRISCILLA FERNANDEZ. ROOM: [facility] Age: 60 Sex: M Admission Date: 08/29/2016 : 1955 Attending Physician: Yon Stubbs M.D. Primary Care Physician: Jer Tyson M.D. HISTORY AND PHYSICAL CHIEF COMPLAINT Left side weakness. HISTORY OF PRESENT ILLNESS This is a 60-year-old gentleman who has a past medical history of acid reflux, chronic kidney disease, diabetes, hypertension, dyslipidemia, benign prostatic hypertrophy, brought to the emergency room with chief complaint of having all of a sudden onset of left-sided weakness, mainly in the left arm with left side neglect, ataxia. The patient in the ER has a CT scan which was negative but patient recent tPA and cannot do MRI secondary to patient with history of bladder stimulator. CTA was not done secondary to increased creatinine. Eventually has been admitted. He denied chest pain, denies nausea or vomiting, fever or chills, or cough. He said his symptoms started all of a sudden yesterday around 8:30 p.m. with left side weakness, mainly in the left arm. Left leg has mild weakness. PAST MEDICAL HISTORY 1. History of chronic kidney disease. 2. Diabetes. 3. Hypertension. 4. Dyslipidemia. 5. Benign prostatic hypertrophy. 6. GERD. PAST SURGICAL HISTORY 1. Left total knee arthroplasty 2005. 2. History of bladder stimulator. 3. History of cervical fusion C4 to C6. 4. History of back surgery. HOME MEDICATIONS 1. Levemir 10 units daily. 2. Flomax 0.4 mg daily. 3. Lyrica 150 mg t.i.d. 4. Amitriptyline 10 mg h.s. 5. Bystolic 5 mg daily. 6. Lipitor 10 mg daily. 7. Macrobid 100 mg b.i.d. 8. Cyclobenzaprine 10 mg daily. 9. Promethazine 25 mg q.6 h. p.r.n. 10. Protonix 40 mg daily. 11. Oxycodone 10/325 one tablet 6 times per day. Unit #: [id number] #: [id number] Patient: PRISCILLA FERNANDEZ ALLERGIES No known drug allergies. SOCIAL HISTORY He used to smoke two packs per day for 30 years, he quit one year ago. No history of alcohol, no illicit drug use. FAMILY HISTORY Father and mother have history of peripheral arterial disease. REVIEW OF SYSTEMS All review of systems are negative except as in history of present illness. PHYSICAL EXAMINATION VITAL SIGNS: Temperature 99.4, heart rate 85, respiratory rate 18, blood pressure 171/99, oxygen saturation 99% on room air. GENERAL: Middle-aged man lying in the bed, comfortably, currently not in any distress. He is alert, awake, oriented x3. HEENT: Pupils are equal and reactive to light and accommodation. Head is normocephalic, atraumatic. NECK: Supple. No JVD. LUNGS: Clear to auscultation bilaterally. No rhonchi, no wheezing. HEART: S1, S2. Regular rate and rhythm. ABDOMEN: Soft, nontender, nondistended. Bowel sounds positive. EXTREMITIES: Normal. No cyanosis, clubbing, or edema. NEUROLOGIC: Left arm power is 2/5, right arm is 5/5. Left lower extremity power is 4/5, right side is 5/5. Cranial nerves II-XII intact. DIAGNOSTIC STUDIES LABORATORY: Sodium 132, potassium 3.4, chloride 99, glucose 399, BUN 21, creatinine 2.90. INR 1. White count 12, hemoglobin 12, hematocrit 36, platelets 409. IMAGING: CT head no acute findings. ASSESSMENT AND PLAN 1. Cerebrovascular accident with left side weakness. Patient received tPA. Will be admitted to ICU. Cannot do MRI secondary to patient has a bladder stimulator. Cannot do CTA secondary to increased creatinine. Neurology, Dr. Teixeira and to evaluate. 2. History of chronic back pain. 3. History of gastroesophageal reflux disease. 4. Chronic kidney disease. 5. Diabetes. 6. Hypertension. 7. Dyslipidemia. 8. Benign prostatic hypertrophy. 9. DVT prophylaxis. Will place the patient on SCDs. Dictated by Willie Mahoney M.D. LENNY/jarred TD: 08/29/2016 12:02 JOB #: [id number] Unit #: [id number] #: [id number] Patient: PRISCILLA FERNANDEZ HISTORY AND PHYSICAL Page 1 of 1 X X HISTORY AND PHYSICAL
--- NOTE | ~2016-08-28 | CR72 ---
[facility] A Service of [facility] & [facility] RADIOLOGY TEXT RESULTS PATIENT: PRISCILLA FERNANDEZ LOCATION: [place] [id number] : [birth year] UNIT #: [id number] AGE: [address]: Yon Stubbs MD SEX: M ORDER DR: [id number] [facility] [address] [facility]. [place], [place] [address] [id number] I MR#: [id number] Acc #: [id number] NAME: PRISCILLA FERNANDEZ : 1955 SEX: M STUDY DATE/TIME: 08/31/2016 0342 UNIT: [facility] ROOM: [facility] STUDY DESCRIPTION: CR Chest Single View Portable Attending Physician: Yon Stubbs M.D. Ordering Physician: Yon Stubbs M.D. Primary Care Physician: Jer Tyson M.D. MEDICAL IMAGING REPORT This report is preliminary unless electronic signature is present EXAM Portable chest, 08/31 at 0342. INDICATION Left side weakness with congestion and shortness of air for the last 3 days. FINDINGS AP portable chest is compared with 08/30/2016. Cardiomegaly is stable. Minimal if any interstitial infiltrate left base. Lungs otherwise are clear. No pneumothorax. Dictated by... Preston Cain Jr., M.D. THIS IS AN ELECTRONICALLY VERIFIED REPORT Preston Cain Jr., M.D. at 08/31/2016 5:19 PM SRINI/moon TD: 08/31/2016 10:55 JOB #: [id number] MEDICAL IMAGING REPORT Page 1 of 1 COPY
--- NOTE | ~2016-08-28 | CO ---
Unit #: [id number] #: [id number] Patient: PRISCILLA FERNANDEZ [id number] [address] [address] [id number] I MR#: [id number] NAME: PRISCILLA FERNANDEZ. ROOM: [facility] Age: 60 Sex: M Admission Date: 08/28/2016 : 1955 Attending Physician: Yon Stubbs M.D. Primary Care Physician: Jer Tyson M.D. Consultation Date: 09/03/2016 CONSULTATION REPORT REASON FOR CONSULT ICU management. HISTORY OF PRESENT ILLNESS This is a 60-year-old male with past medical history significant for acute ischemic CVA a few days ago who was transferred to the ICU from the floor as a Rapid Response. Apparently, the patient presented to the ER a few days ago with left-sided neglect and ataxia. Patient underwent PEG placement yesterday and since then he became unresponsive. His condition deteriorated overnight with respiratory distress, tachypnea, and concern for aspiration. The patient was transferred to our ICU for further evaluation and management. The patient currently is unresponsive. He is posturing on the left side and withdrawing to pain on the right side. He is tachypneic. No fever or chills. PAST MEDICAL HISTORY 1. Chronic kidney disease. 2. Diabetes. 3. Hypertension. 4. Hyperlipidemia. 5. Benign prostatic hypertrophy. 6. GERD. PAST SURGICAL HISTORY 1. Left total knee arthroplasty. 2. Bladder stimulator. 3. Cervical fusion C4 to C6. 4. History of back surgery. HOME MEDICATIONS 1. Levemir. 2. Flomax. 3. Lyrica. 4. Amitriptyline. 5. Bystolic. 6. Lipitor. 7. Macrobid. 8. Cyclobenzaprine. 9. Promethazine. 10. Protonix. Unit #: [id number] #: [id number] Patient: PRISCILLA FERNANDEZ 11. Oxycodone. ALLERGIES No known drug allergies. SOCIAL HISTORY Patient used to smoke two packs per day for 30 years. He quit one year ago. No history of alcohol or drug abuse. FAMILY HISTORY Peripheral vascular disease. REVIEW OF SYSTEMS Unable to obtain as he is confused and lethargic. PHYSICAL EXAMINATION VITAL SIGNS: Temperature 102.3, heart rate 99, respiratory rate 28, blood pressure 141/73. HEENT: Atraumatic, normocephalic. PERRLA. EOMI. NECK: Supple. No JVD. No lymphadenopathy. LUNGS: Fine rhonchi in the upper airways. HEART: S1, S2. No murmur, gallops or rubs. ABDOMEN: Soft, nontender. Bowel sounds are positive. No hepatosplenomegaly. EXTREMITIES: Left side posturing. Right side withdrawing to pain. NEUROLOGIC: Patient is lethargic and not responding to verbal stimuli. SKIN: No rashes. DIAGNOSTIC STUDIES LABORATORY: Creatinine 2.2, sodium 146, CO2 is 16. White blood cell count 17.1. IMAGING: CT chest is noted and is unremarkable. ASSESSMENT 1. Toxic metabolic encephalopathy. 2. Urinary tract infection. 3. Ordrc-zb-fkuwwsv kidney disease. 4. Acute ischemic cerebrovascular accident. 5. Chronic anemia. 6. Possible hydronephrosis. PLAN 1. Patient will be watched in the ICU very closely. No need for intubation at this point but will continue to reassess periodically. 2. Will obtain STAT lactic acid, noting that his bicarb has been trending down over the last 24 hours. 3. Start patient on Zosyn for possible UTI. 4. Start patient on bronchodilator. 5. Will keep patient n.p.o. given his mental status. 6. Will change IV fluid to include bicarb. 7. Followup CT chest. 8. DVT prophylaxis. Critical care time spent on this patient was 33 minutes. Unit #: [id number] #: [id number] Patient: REBECCAPRISCILLA Critical time spent on this patient was minutes. Dictated by... Vishal Howard TD: 09/03/2016 21:02 JOB #: [id number] CONSULTATION REPORT Page 1 of 1 X MICHAEL ALBERT MD CONSULTATION REPORT
--- NOTE | ~2016-08-28 | CT4 ---
[facility] A Service of [facility] & [facility] RADIOLOGY TEXT RESULTS PATIENT: PRISCILLA FERNANDEZ LOCATION: [address]- : [birth year] UNIT #: [id number] AGE: [address]: Yon Stubbs MD SEX: M ORDER DR: [id number] [facility] [address] [facility]. [place], [place] [address] [id number] I MR#: [id number] Acc #: [id number] NAME: PRISCILLA FERNANDEZ. : 1955 SEX: M STUDY DATE/TIME: 09/03/2016 15:12 UNIT: [facility] ROOM: [facility] STUDY DESCRIPTION: CT Abd and Pelv Wo Cont Attending Physician: Yon Stubbs M.D. Ordering Physician: Yon Stubbs M.D. Primary Care Physician: Jer Tyson M.D. MEDICAL IMAGING REPORT This report is preliminary unless electronic signature is present EXAM CT abdomen and pelvis without contrast 09/03/2016 HISTORY Hematuria, history of kidney obstruction, fever. Patient with stage 1 kidney disease. FINDINGS Axial images performed through the abdomen and pelvis without contrast. Multiplanar reconstructed images reviewed at a workstation. This CT exam was performed with one or more of the following radiation dose reduction techniques: automatic exposure control, adjustment of mA and/or kV according to patient size, and iterative reconstruction. ABDOMEN: Lung bases demonstrates a small left lower lobe granuloma. The liver demonstrates diffuse fatty infiltration. Spleen unremarkable. Gallbladder unremarkable. Pancreas and adrenal glands unremarkable. Both kidneys demonstrates nonspecific perinephric stranding as well as mild bilateral hydronephrosis and hydroureter but no obstructing lesions identified. Velez catheter seen within the bladder. There is a small nonobstructing stone right kidney. Radiodensity is noted adjacent to the prostatic urethra or possibly membranous urethra. This could represent just calcification within the surrounding soft tissues but a small urethral stone not excluded. Visualized GI tract unremarkable. The appendix is normal. PELVIS: There is L1 compression fracture which appears chronic with adjacent sclerosis. Approximately 30% loss of the central and anterior vertebral body height. Neural stimulator noted over the right posterior gluteal region. IMPRESSION STS. [facility] A Service of [facility] & [facility] RADIOLOGY TEXT RESULTS PATIENT: PRISCILLA FERNANDEZ LOCATION: [facility] C[facility]-06 : [birth year] UNIT #: [id number] AGE: [address]: Yon Stubbs MD SEX: M ORDER DR: 1. Diffuse fatty infiltration of the liver. 2. Mild nonspecific perinephric stranding and mild bilateral hydronephrosis and hydroureter. The perinephric stranding can be seen with chronic renal disease. The mild hydro demonstrates no identifiable etiology. Velez catheter seen within a decompressed bladder. Small calcifications noted adjacent to the catheter probably within the soft tissues, ureteral stone considered less likely. 3. L1 compression fracture which appears chronic. Dictated by... Jayme Brice M.D. THIS IS AN ELECTRONICALLY VERIFIED REPORT Jayme Brice M.D. at 09/03/2016 10:34 PM Krysten TD: 09/03/2016 16:29 JOB #: [id number] MEDICAL IMAGING REPORT Page 1 of 1 COPY
--- NOTE | ~2016-08-28 | CR72 ---
[facility] A Service of [facility] & [facility] RADIOLOGY TEXT RESULTS PATIENT: PRISCILLA FERNANDEZ LOCATION: [address] : [birth year] UNIT #: [id number] AGE: [address]: Yon Stubbs MD SEX: M ORDER DR: [id number] [facility] [address] [facility]. [place], [place] [address] [id number] I MR#: [id number] #: [id number] NAME: PRISCILLA FERNANDEZ. : 1955 SEX: M STUDY DATE/TIME: 08/30/2016 18:02 UNIT: [facility] ROOM: [facility] STUDY DESCRIPTION: CR Chest Single View Portable Attending Physician: Yon Stubbs M.D. Ordering Physician: Yon Stubbs M.D. Primary Care Physician: Jer Tyson M.D. MEDICAL IMAGING REPORT This report is preliminary unless electronic signature is present EXAM Portable chest HISTORY Fever, congestion today. FINDINGS The cardiac size and pulmonary vascularity are normal. Mild left thoracic curve. Low lung volumes. No infiltrates or effusions. Small calcified granuloma right lower lung. Fixation plate in the lower cervical spine. IMPRESSION No acute findings and no active disease in the chest. Dictated by... Akshat Bhatia M.D. THIS IS AN ELECTRONICALLY VERIFIED REPORT Akshat Bhatia M.D. at 08/31/2016 12:57 PM DFL/farhana TD: 08/31/2016 09:24 JOB #: [id number] MEDICAL IMAGING REPORT Page 1 of 1 COPY
--- NOTE | ~2016-08-28 | A ---
[facility] Nutrition Therapy DATE: 08/31/16 Patient: PRISCILLA FERNANDEZ Physician: ASHLYN [address] Room/Bed: [address], Zip: [place] [address] Admit Date: 08/28/16 Date of : [birth year] Height: 6 0 Weight: 224 102 NUTRITIONAL ASSESSMENT: REASON: NPO STATUS IN ICU 60 yo male admitted for CVA PMH: GERD, CKD, DM, HTN, dyslipidemia, BPH, s/p bladder stimulator, back surgery Anthropometrics: Ht: 72" Wt: 103 kg BMI: 30.8 Labs: Cl- 112 Gluc 159 Creat 2.3 Alb 2.8 Accuchecks 168-195 HgbA1C 6.7 Trig 463 GFR 30.2 Meds: zofran, protonix, novolog, NaCl I/O & Bowel function: 1857/1850, last BM 08/29 Skin Integrity: Abrasion left forearm Edema: none noted Diet: Pureed/ HTL/ consistent carbohydrate Assessment: Chart reviewed, events noted. Pt admitted for CVA, and has been NPO since admission 08/[address] spoke with SUPERVISOR SOLDERING, who completed a video swallow evaluation on the pt this AM. SUPERVISOR SOLDERING reports the pt is pocketing food, needs to be upright with 1:1 feeding assistance and fed slowly. SUPERVISOR SOLDERING recommend diet as ordered above (pureed diet with honey thick liquids). SUPERVISOR SOLDERING expects that the pt will need continued SUPERVISOR SOLDERING when discharged to rehab. RN reports that the pt consumed 30-50% of his lunch today, and to hold off on enteral nutrition recommendations for now. RD will continue to follow the pt to determine nutritional needs. RD spoke with the pt's at bedside, who reports that the pt consumed at least 50% of his lunch. Pt's denies that he has had any recent weight loss. RD suggested sugar-free Magic Cup for supplemental nutrition. RD will order Magic Cup for supplemental nutrition, and pt's thinks he will do well with this. RD provided the pt's with a menu so she could order foods he would like. Please see recommendations below. Dx: Inadeuqate protein-energy intake RT chewing/ swallowing difficulties AEB SUPERVISOR SOLDERING evaluation, RN reported pt consumed 30-50% of meals. Intervention: 1. Diet per SUPERVISOR SOLDERING 2. Enteral nutrition if appropriate [facility] Nutrition Therapy DATE: 08/31/16 Patient: PRISCILLA FERNANDEZ Physician: ASHLYN Address: [address] Room/Bed: [address], Zip: [place] [address] Admit Date: 08/28/16 Date of : [birth year] Height: 6 0 Weight: 224 102 Monitoring, Evaluation and Goals: 1. Oral intake; consume greater than 50-75% of meals and supplements 2. Improve labs; glucose, triglycerides, GFR, creat 3. Weight; prevent unintentional weight loss Recommendations: 1. Continue to advance diet per SUPERVISOR SOLDERING recommendations. 2. Magic Cup (sugar-free) TID for supplemental nutrition. 3. If the pt's intake does not improve, may consider obtaining short-term enteral access to provide supplemental nutrition. RD will follow up to determine appropriate recommendations based on the pt's intake. Pt is at moderate nutritional risk. Respectfully, RON BOYD RD, LD Food and Nutritional Services [facility] [place] [facility] cc: client file
--- NOTE | ~2016-08-28 | CO ---
Unit #: [id number] #: [id number] Patient: PRISCILLA FERNANDEZ [id number] [place] [address] [facility]. [place], [place] [address] [id number] I MR#: [id number] NAME: PRISCILLA FERNANDEZ. ROOM: [facility] Age: 60 Sex: M Admission Date: 08/28/2016 : 1955 Attending Physician: Yon Stubbs M.D. Primary Care Physician: Jer Tyson M.D. Consultation Date: 09/03/2016 CONSULTATION REPORT REASON FOR CONSULTATION Hematuria, sepsis. HISTORY This 60-year-old man was just transferred to the ICU for ruling out sepsis. Fortunately, his lactate, at least initially, has come back negative. He has been noted to have gross hematuria, and a CT scan was done. He was hospitalized 5 days ago with acute right middle cerebral artery stroke and, despite TPA, has not improved. He has had dysphagia, and a PEG tube was placed yesterday morning. Hematuria was noted since administration of tissue plasminogen activator, but it has persisted, albeit light and resolving in his Velez catheter. This morning he was noted to have a high fever of over 102 degrees. He was started on Zosyn and transferred to the intensive care unit. His son is interviewed at bedside and relates that he has been incontinent with urinary retention since knee surgery about 18 months ago. He had a sacral stimulator placed, according to the son, by Dr. Victoriano Ayala in January of 2016 at [facility] with limited improvement. He remains on Flomax and is catheterized by or [id number]-[id number] first thing in the morning, after work and before bedtime. He voids somewhat in between. He has had multiple urinary infections associated with this management. He himself can provide no history at this time. There is no history of stone disease, however. PAST MEDICAL HISTORY Diabetes; chronic kidney disease, stage 2, for which he sees Dr. Richter; hypertension; hyperlipidemia; GERD. SURGERIES The above sacral stimulator and knee surgery. Also, surgeries of the back and also C4-6 cervical fusion. MEDICATIONS Home medications include Levemir, Flomax, Lyrica, amitriptyline, Bystolic, Lipitor, Macrobid 100 mg b.i.d., cyclobenzaprine, promethazine, Protonix, oxycodone. He is currently receiving aspirin 325 mg, and Zosyn was started this morning. ALLERGIES None known. Unit #: [id number] #: [id number] Patient: PRISCILLA FERNANDEZ FAMILY HISTORY Positive for peripheral arterial disease. SOCIAL HISTORY Stopped smoking one year ago after 30 years of one pack per day. REVIEW OF SYSTEMS Not possible at this time. PHYSICAL EXAMINATION GENERAL: On examination, patient is lying in the ICU, eyes closed, not verbally responsive. Unresponsive to exam. ABDOMEN: Abdomen is soft with no appreciable distention or tenderness. : Phallus concealed. Expressible with normal glans and meatus. Testes and epididymis normal, distended. Velez catheter in place draining mildly cloudy urine with slight residual wisps of blood but generally yellow. VITAL SIGNS: Onset of fevers 2300 last night at 100.7; 102.5 at 3 a.m.; 102.7 now. Vital signs include a pulse of 104, blood pressure 163/91, respirations 26, oxygen saturation 98%. Height 6'0", weight 211 pounds. DIAGNOSTIC STUDIES LABORATORIES: Urinalysis consistent with infection. Urine culture sent yesterday. BUN 27, creatinine 2.2 (actually improved from an admission value of 2.9). WBC 17.1, normal lactate. X-RAYS: CT scan shows zyvi-wf-bwzjsjgu bilateral dilation of the ureters from the level of the bladder, which is affectively drained with a Velez catheter. There was minimal bilateral hydronephrosis appreciable. Bladder stimulator well positioned with no evidence of associated fluid. IMPRESSION 1. Hematuria likely multifactorial with indwelling catheter, urinary tract infection. 2. Likely sepsis due to urinary tract infection. Doubt significant obstruction but rather likely compromised peristalsis and/or mild bladder wall edema. Believe the benefit of placing stents may be less than the risk of intervention at this time, but we will closely follow. 3. Chronic urinary retention. PLAN Will maintain catheter drainage (1) antibiotics and await culture results. Will follow closely with you and keep him NPO. Thank you for the consultation, Yon. Dictated by... Preston Boudreaux M.D. AJIT/monisha TD: 09/04/2016 08:27 JOB #: [id number] Unit #: [id number] #: [id number] Patient: PRISCILLA FERNANDEZ CONSULTATION REPORT Page 1 of 1 X Preston Boudreaux MD CONSULTATION REPORT
--- NOTE | ~2016-08-28 | CT57 ---
[facility] A Service of [facility] RADIOLOGY TEXT RESULTS PATIENT: PRISCILLA FERNANDEZ LOCATION: [address] : [birth year] UNIT #: [id number] AGE: [address]: Yon Stubbs MD SEX: M ORDER DR: [id number] [facility]. [place], [place] [address] [id number] I MR#: [id number] Acc #: [id number] NAME: PRISCILLA FERNANDEZ : 1955 SEX: M STUDY DATE/TIME: 09/03/2016 9:11 UNIT: C3A PCU ROOM: 311 STUDY DESCRIPTION: CT Chest Wo Cont Attending Physician: Yon Stubbs M.D. Ordering Physician: Yon Stubbs M.D. Primary Care Physician: Jer Tyson M.D. MEDICAL IMAGING REPORT This report is preliminary unless electronic signature is present EXAM CT chest INDICATION Aspiration pneumonia. Left-sided weakness. New-onset fever. TECHNIQUE CT of the thorax without contrast. Coronal and sagittal reconstructions were obtained. This CT exam was performed with one or more of the following radiation dose reduction techniques: automatic exposure control, adjustment of mA and/or kV according to patient size, and iterative reconstruction. COMPARISON Chest radiograph dated 08/31/2016 and 08/30/2016. FINDINGS Moderate coronary calcifications are noted. Cardiac size within normal limits. No pericardial or pleural effusion. The thoracic aorta is normal in caliber. No enlarged mediastinal or hilar lymph nodes. There is mild emphysema in the lung apices. Minimal atelectasis is noted in the dependent portions of both lungs. Mild interstitial thickening is accentuated by motion artifact, however, probably represents a chronic interstitial change. This is similar to prior radiographs including a 2006 comparison. There is diffuse hepatic steatosis throughout the liver. Only the superior portion of the left kidney is imaged, however, there does appear to be some perinephric stranding and pelvocaliectasis. Consider CT abdomen for further evaluation. Benign low attenuation adrenal adenomas are identified in the left adrenal gland. [facility] A Service of [facility] RADIOLOGY TEXT RESULTS PATIENT: PRISCILLA FERNANDEZ LOCATION: [facility]2-06 : [birth year] UNIT #: [id number] AGE: [address]: Yon Stubbs MD SEX: M ORDER DR: No acute osseous abnormalities. There is laminectomy changes at T9 and T10. IMPRESSION 1. Chronic interstitial opacities in both lungs. 2. Minimal basilar atelectasis. No focal consolidation. 3. Hepatic steatosis. 4. Abnormal appearance of the left kidney. Please note this is only partially imaged, however, there does appear to be some perinephric stranding and pelvocaliectasis of the superior pole collecting system. A ureteral obstruction should be considered. Consider further evaluation with a CT abdomen to assess. Dictated by... Ramirez Long M.D. THIS IS AN ELECTRONICALLY VERIFIED REPORT Ramirez Long M.D. at 09/03/2016 3:48 PM MARY/farhana TD: 09/03/2016 11:09 JOB #: [id number] MEDICAL IMAGING REPORT Page 1 of 1 COPY
--- NOTE | ~2016-08-28 | CR72 ---
[facility] A Service of [facility] RADIOLOGY TEXT RESULTS PATIENT: PRISCILLA FERNANDEZ LOCATION: [facility] 308-01 : 59 UNIT #: [id number] AGE: [address]: Yon Stubbs MD SEX: M ORDER DR: [id number] [facility] [address] [facility]. [place], [place] [address] [id number] MR#: [id number] Acc #: [id number] NAME: PRISCILLA FERNANDEZ. : 1955 SEX: M STUDY DATE/TIME: 09/05/2016 4:50 UNIT: [facility] ROOM: [facility] STUDY DESCRIPTION: CR Chest Single View Portable Attending Physician: Yon Stubbs M.D. Ordering Physician: Ivana Jenkins M.D. Primary Care Physician: Jer Tyson M.D. MEDICAL IMAGING REPORT This report is preliminary unless electronic signature is present EXAM Single view chest INDICATIONS Left-sided weakness. Prior infarct. TECHNIQUE Single portable AP view of the chest compared to 05/23/2006. FINDINGS Heart and mediastinal contours within normal limits. Lungs are clear. No pleural effusions. IMPRESSION No acute cardiopulmonary findings. Dictated by... Ramirez Long M.D. THIS IS AN ELECTRONICALLY VERIFIED REPORT Ramirez Long M.D. at 09/05/2016 11:15 PM MARY/alpesh TD: 09/05/2016 09:02 JOB #: [id number] MEDICAL IMAGING REPORT Page 1 of 1 COPY
[~2016-08-28 22:52] MED LIST: ALBUTEROL20 ml INH; ALEVE220 M1 PO; AMARYL2 MG PO; AMITRIPTYLINE H25 MG PO; ASPIRIN PO; BAYER ASPIRIN325 M1 PO; DUTOPROL 50-121 EACH PO; FLOMAX0.4 M1 PO; GLUCOPHAGE500 MG PO; HYDROCODON-ACE1 EAC5 PO; NEURONTIN600 MG; NICOTINE T1 PATCH .2 TOP; OXYCODONE HCL10 MG PO; PANTOPRAZOLE SO40 MG PO; PHENERGAN25 M1 DOB; ROBAXIN 750750 M1 PO; SIMVASTATIN20 MG PO; TOPROL XL PO
[2016-08-28 23:05] LABS: POC - CREATININE 2.33 mg/dL (0.64-1.27)
[2016-08-28 23:25] LABS: BASOPHIL# 0.1 X10e3 (0-0.3); BASOPHIL% 0.8 % (0-2.5); DIFF IND NO; EOSINOPHIL# 0.7 X10e3 (0-0.7); EOSINOPHIL% 5.6 % (0.0-7.0); HEMATOCRIT 36.6 % (38.0-50.0); LYMPHOCYTE# 2.5 X10e3 (1.0-3.5); LYMPHOCYTE% 19.6 % (17.0-45.0); MEAN CELL VOLUME 84.6 FL (83-96); MEAN CORPUSCULAR HEMOGLOBIN 27.7 PG (28-34); MEAN CORPUSCULAR HGB CONC 32.8 g/dL (30-36); MEAN PLATELET VOLUME 7.3 FL (6.5-11.5); MONOCYTE# 1.2 X10e3 (0-1.0); MONOCYTE% 9.3 % (3.0-12.0); NEUTROPHIL# 8.3 X10e3 (1.5-7.1); NEUTROPHIL% 64.7 % (40-75); PLATELET COUNT 409 X10e3 (140-420); RED BLOOD COUNT 4.33 X10e (3.90-5.60); RED CELL DISTRIBUTION WIDTH 15.3 % (11.0-15.5); WHITE BLOOD COUNT 12.8 X10e3 (4.0-10.5)
[2016-08-28 23:41] LABS: PROTHROMBIN TIME (PATIENT) 10.1 SECONDS (9.6-11.5)
[2016-08-28 23:49] LABS: BUN/CREATININE RATIO 7.24; CALCIUM SERUM 8.6 mg/dL (8.4-10.2); CREATININE SERUM 2.9 mg/dL (0.6-1.4); GLOM FILT RATE Estimated 22.8 mL/min (>60); POTASSIUM 3.4 mmol/L (3.5-5.1)
[2016-08-28] MEDS ORDERED: LEVEMIR100 UNITS/ SUBQ (23:52)
[2016-08-28] MEDS ORDERED: FLOMAX0.4 M1 DOB (23:55)
[2016-08-28] MEDS ORDERED: LYRICA PO (23:55)
[2016-08-28] MEDS ORDERED: BYSTOLIC5 MG PO (23:57)
[2016-08-28] MEDS ORDERED: AMITRYPTYLINE PO (23:57)
[2016-08-28] MEDS ORDERED: FLEXERIL10 MG PO (23:58)
[2016-08-28] MEDS ORDERED: NITROFURANTOIN100 M3 PO (23:58)
[2016-08-29 00:26] LABS: URINE SOURCE CLEAN CATCH
[2016-08-29 00:34] LABS: CULTURE INDICATED? YES; URBCS1 AUWI 0-2 /[HPF] (0-2); URINE APPEARANCE CLOUDY; URINE BACTERIA AUWI NEG (NEGATIVE); URINE BILIRUBIN NEG (NEG); URINE COLOR YELLOW; URINE KETONE NEG (NEG); URINE NITRATE NEG (NEG); URINE PH 6.5 (5-8); URINE PROTEIN 1+ (NEG); URINE SPECIFIC GRAVITY 1.011 (1.003-1.035); URINE SQUAMOUS EPITHELIAL CELL OCC /[HPF]; URINE UROBILINOGEN 0.2 MG/DL (NEG); UWBCS1 AUWI 100-200 (0-5)
[2016-08-29 00:35] LABS: URINE LEUKOCYTE ESTERASE 3+ (NEG)
[2016-08-29 00:36] LABS: URINE BLOOD TRACE (NEG); URINE GLUCOSE >1000 MG/DL (NEG)
[2016-08-29 08:20] LABS: BASOPHIL# 0.1 X10e3 (0-0.3); BASOPHIL% 0.9 % (0-2.5); EOSINOPHIL# 0.4 X10e3 (0-0.7); EOSINOPHIL% 2.8 % (0.0-7.0); HEMATOCRIT 37.7 % (38.0-50.0); HEMOGLOBIN 12.5 gm/dL (13.0-16.0); LYMPHOCYTE# 2.1 X10e3 (1.0-3.5); LYMPHOCYTE% 14.1 % (17.0-45.0); MEAN CELL VOLUME 83.4 FL (83-96); MEAN CORPUSCULAR HEMOGLOBIN 27.6 PG (28-34); MEAN CORPUSCULAR HGB CONC 33.1 g/dL (30-36); MEAN PLATELET VOLUME 7.3 FL (6.5-11.5); MONOCYTE# 0.9 X10e3 (0-1.0); MONOCYTE% 6.3 % (3.0-12.0); NEUTROPHIL# 11.3 X10e3 (1.5-7.1); NEUTROPHIL% 75.9 % (40-75); PLATELET COUNT 384 X10e3 (140-420); RED BLOOD COUNT 4.52 X10e (3.90-5.60); RED CELL DISTRIBUTION WIDTH 15.3 % (11.0-15.5); WHITE BLOOD COUNT 14.9 X10e3 (4.0-10.5)
[2016-08-29 08:22] LABS: DIFF IND NO
[2016-08-29 08:58] LABS: BUN/CREATININE RATIO 7.6; CALCIUM SERUM 8.4 mg/dL (8.4-10.2); CREATININE SERUM 2.5 mg/dL (0.6-1.4); GLOM FILT RATE Estimated 27.3 mL/min (>60); POTASSIUM 3.4 mmol/L (3.5-5.1)
[2016-08-30 05:53] LABS: BASOPHIL# 0.1 X10e3 (0-0.3); BASOPHIL% 0.8 % (0-2.5); EOSINOPHIL# 0.3 X10e3 (0-0.7); EOSINOPHIL% 2.2 % (0.0-7.0); HEMATOCRIT 37.8 % (38.0-50.0); HEMOGLOBIN 12.2 gm/dL (13.0-16.0); LYMPHOCYTE# 3.4 X10e3 (1.0-3.5); LYMPHOCYTE% 22.7 % (17.0-45.0); MEAN CORPUSCULAR HGB CONC 32.2 g/dL (30-36); MEAN PLATELET VOLUME 7.8 FL (6.5-11.5); MONOCYTE# 1.2 X10e3 (0-1.0); MONOCYTE% 7.9 % (3.0-12.0); NEUTROPHIL# 9.8 X10e3 (1.5-7.1); NEUTROPHIL% 66.4 % (40-75); PLATELET COUNT 374 X10e3 (140-420); RED BLOOD COUNT 4.49 X10e (3.90-5.60); RED CELL DISTRIBUTION WIDTH 15.1 % (11.0-15.5); WHITE BLOOD COUNT 14.8 X10e3 (4.0-10.5)
[2016-08-30 05:57] LABS: DIFF IND NO
[2016-08-30 06:48] LABS: ALBUMIN SERUM 2.8 g/dL (3.5-5.0); ALKALINE PHOSPHATASE 78 U/L (32-92); ALT (SGPT) 13 U/L (10-40); AST (SGOT) 12 U/L (10-42); BILIRUBIN,TOTAL 0.6 mg/dL (0.2-2.0); BLOOD UREA NITROGEN 20 mg/dL (9-23); BUN/CREATININE RATIO 8.33; CALCIUM SERUM 8.6 mg/dL (8.4-10.2); CARBON DIOXIDE 19 mmol/L (22-31); CHLORIDE 107 mmol/L (100-111); CHOLESTEROL 170 mg/dL (0-200); CREATININE SERUM 2.4 mg/dL (0.6-1.4); GLOM FILT RATE Estimated 28.7 mL/min (>60); GLUCOSE FASTING 178 mg/dL (70-110); HDL CHOLESTEROL 25 mg/dL (29-75); PROTEIN TOTAL SERUM 6.6 g/dL (6.0-8.3); SODIUM 136 mmol/L (135-145); TRIGLYCERIDES 463 mg/dL (10-160)
[2016-08-31 05:52] LABS: BASOPHIL# 0.1 X10e3 (0-0.3); BASOPHIL% 0.6 % (0-2.5); EOSINOPHIL# 0.3 X10e3 (0-0.7); HEMATOCRIT 34.4 % (38.0-50.0); HEMOGLOBIN 11.1 gm/dL (13.0-16.0); LYMPHOCYTE# 3.1 X10e3 (1.0-3.5); LYMPHOCYTE% 22.2 % (17.0-45.0); MEAN CELL VOLUME 84.5 FL (83-96); MEAN CORPUSCULAR HEMOGLOBIN 27.4 PG (28-34); MEAN CORPUSCULAR HGB CONC 32.4 g/dL (30-36); MEAN PLATELET VOLUME 7.6 FL (6.5-11.5); MONOCYTE# 1.2 X10e3 (0-1.0); MONOCYTE% 8.5 % (3.0-12.0); NEUTROPHIL# 9.4 X10e3 (1.5-7.1); NEUTROPHIL% 66.7 % (40-75); PLATELET COUNT 379 X10e3 (140-420); RED BLOOD COUNT 4.06 X10e (3.90-5.60); RED CELL DISTRIBUTION WIDTH 15.4 % (11.0-15.5); WHITE BLOOD COUNT 14.1 X10e3 (4.0-10.5)
[2016-08-31 06:20] LABS: DIFF IND NO
[2016-08-31 06:30] LABS: ALBUMIN SERUM 2.8 g/dL (3.5-5.0); BILIRUBIN,TOTAL 0.3 mg/dL (0.2-2.0); BUN/CREATININE RATIO 9.13; CALCIUM SERUM 8.8 mg/dL (8.4-10.2); CREATININE SERUM 2.3 mg/dL (0.6-1.4); GLOM FILT RATE Estimated 30.2 mL/min (>60); POTASSIUM 4.1 mmol/L (3.5-5.1); PROTEIN TOTAL SERUM 6.6 g/dL (6.0-8.3)
[2016-09-02 05:55] LABS: BASOPHIL# 0.1 X10e3 (0-0.3); BASOPHIL% 0.7 % (0-2.5); EOSINOPHIL# 0.2 X10e3 (0-0.7); EOSINOPHIL% 1.6 % (0.0-7.0); HEMATOCRIT 32.3 % (38.0-50.0); HEMOGLOBIN 10.4 gm/dL (13.0-16.0); LYMPHOCYTE# 2.7 X10e3 (1.0-3.5); LYMPHOCYTE% 20.8 % (17.0-45.0); MEAN CELL VOLUME 85.2 FL (83-96); MEAN CORPUSCULAR HEMOGLOBIN 27.4 PG (28-34); MEAN CORPUSCULAR HGB CONC 32.1 g/dL (30-36); MEAN PLATELET VOLUME 7.4 FL (6.5-11.5); NEUTROPHIL# 8.8 X10e3 (1.5-7.1); NEUTROPHIL% 68.9 % (40-75); PLATELET COUNT 389 X10e3 (140-420); RED BLOOD COUNT 3.79 X10e (3.90-5.60); RED CELL DISTRIBUTION WIDTH 15.5 % (11.0-15.5); WHITE BLOOD COUNT 12.8 X10e3 (4.0-10.5)
[2016-09-02 05:59] LABS: DIFF IND NO
[2016-09-02 07:05] LABS: CALCIUM SERUM 8.8 mg/dL (8.4-10.2); GLOM FILT RATE Estimated 35.7 mL/min (>60); POTASSIUM 3.2 mmol/L (3.5-5.1)
[2016-09-03 05:44] LABS: HEMATOCRIT 34.9 % (38.0-50.0); HEMOGLOBIN 11.3 gm/dL (13.0-16.0); MEAN CORPUSCULAR HEMOGLOBIN 27.9 PG (28-34); MEAN CORPUSCULAR HGB CONC 32.4 g/dL (30-36); MEAN PLATELET VOLUME 7.4 FL (6.5-11.5); RED BLOOD COUNT 4.06 X10e (3.90-5.60); RED CELL DISTRIBUTION WIDTH 15.9 % (11.0-15.5); WHITE BLOOD COUNT 17.1 X10e3 (4.0-10.5)
[2016-09-03 06:18] LABS: URINE APPEARANCE CLOUDY; URINE BILIRUBIN NEG (NEG); URINE BLOOD 3+ (NEG); URINE COLOR YELLOW; URINE GLUCOSE 500 MG/DL (NEG); URINE KETONE NEG (NEG); URINE LEUKOCYTE ESTERASE 3+ (NEG); URINE NITRATE NEG (NEG); URINE PROTEIN 2+ (NEG); URINE SPECIFIC GRAVITY 1.012 (1.003-1.035); URINE UROBILINOGEN 0.2 MG/DL (NEG)
[2016-09-03 06:21] LABS: URBCS1 AUWI 200-300 /[HPF] (0-2); URINE BACTERIA AUWI NEG (NEGATIVE); URINE SQUAMOUS EPITHELIAL CELL NONE SEEN /[HPF]; UWBCS1 AUWI 100-200 (0-5)
[2016-09-03 07:13] LABS: ALBUMIN SERUM 3.1 g/dL (3.5-5.0); BILIRUBIN,TOTAL 0.5 mg/dL (0.2-2.0); BUN/CREATININE RATIO 12.27; CALCIUM SERUM 8.9 mg/dL (8.4-10.2); CREATININE SERUM 2.2 mg/dL (0.6-1.4); GLOM FILT RATE Estimated 31.8 mL/min (>60); MAGNESIUM 1.9 mg/dL (1.6-3.0); POTASSIUM 3.9 mmol/L (3.5-5.1); PROTEIN TOTAL SERUM 6.8 g/dL (6.0-8.3)
[2016-09-03 07:20] LABS: ARTERIAL BLD GAS O2 SATURATION 96.7 % (90.0-100.0); ARTERIAL BLOOD GAS CARBOXY HB 0.7 %sat (0.0-9.0); ARTERIAL BLOOD GAS HCO3 17.1 mmol/L; ARTERIAL BLOOD GAS MET HB 0.7 %sat (0.0-2.0); ARTERIAL BLOOD GAS PCO2 26.3 mmHg (35.0-45.0); ARTERIAL BLOOD GAS PO2 93.9 mmHg (80.0-100); ARTERIAL BLOOD GAS pH 7.421 (7.350-7.450)
[2016-09-03 07:23] LABS: ARTERIAL BLOOD GAS ALLEN TEST NORMAL; ARTERIAL BLOOD GAS ART SITE LEFT RADIAL; ARTERIAL BLOOD GAS LITER FLOW 1.5; ARTERIAL DRAW? YES
[2016-09-03 07:24] LABS: ARTERIAL BLOOD GAS DELIVERY NASAL CANNULA
[2016-09-04 04:47] LABS: HEMATOCRIT 38.2 % (38.0-50.0); HEMOGLOBIN 11.9 gm/dL (13.0-16.0); MEAN CELL VOLUME 87.7 FL (83-96); MEAN CORPUSCULAR HEMOGLOBIN 27.3 PG (28-34); MEAN CORPUSCULAR HGB CONC 31.2 g/dL (30-36); MEAN PLATELET VOLUME 7.6 FL (6.5-11.5); RED BLOOD COUNT 4.35 X10e (3.90-5.60); WHITE BLOOD COUNT 20.8 X10e3 (4.0-10.5)
[2016-09-04 05:10] LABS: BUN/CREATININE RATIO 13.18; CALCIUM SERUM 8.8 mg/dL (8.4-10.2); CREATININE SERUM 2.2 mg/dL (0.6-1.4); GLOM FILT RATE Estimated 31.8 mL/min (>60); POTASSIUM 3.8 mmol/L (3.5-5.1)
[2016-09-04 16:12] LABS: BUN/CREATININE RATIO 15.5; CALCIUM SERUM 8.5 mg/dL (8.4-10.2); GLOM FILT RATE Estimated 35.7 mL/min (>60); POTASSIUM 3.8 mmol/L (3.5-5.1)
[2016-09-05 04:10] LABS: ARTERIAL BLD GAS O2 SATURATION 95.8 % (90.0-100.0); ARTERIAL BLOOD GAS CARBOXY HB 0.8 %sat (0.0-9.0); ARTERIAL BLOOD GAS HCO3 18.9 mmol/L; ARTERIAL BLOOD GAS MET HB 0.7 %sat (0.0-2.0); ARTERIAL BLOOD GAS PCO2 29.3 mmHg (35.0-45.0); ARTERIAL BLOOD GAS PO2 83.8 mmHg (80.0-100); ARTERIAL BLOOD GAS pH 7.418 (7.350-7.450)
[2016-09-05 04:20] LABS: ARTERIAL BLOOD GAS ALLEN TEST NORMAL; ARTERIAL BLOOD GAS ART SITE RIGHT RADIAL; ARTERIAL BLOOD GAS DELIVERY NASAL CANNULA; ARTERIAL DRAW? YES
[2016-09-05 05:53] LABS: BASOPHIL# 0.1 X10e3 (0-0.3); BASOPHIL% 0.5 % (0-2.5); DIFF IND YES; EOSINOPHIL# 0.6 X10e3 (0-0.7); EOSINOPHIL% 3.7 % (0.0-7.0); HEMATOCRIT 32.9 % (38.0-50.0); HEMOGLOBIN 10.5 gm/dL (13.0-16.0); LYMPHOCYTE# 1.9 X10e3 (1.0-3.5); LYMPHOCYTE% 12.1 % (17.0-45.0); MEAN CELL VOLUME 86.7 FL (83-96); MEAN CORPUSCULAR HEMOGLOBIN 27.6 PG (28-34); MEAN CORPUSCULAR HGB CONC 31.9 g/dL (30-36); MEAN PLATELET VOLUME 7.9 FL (6.5-11.5); MONOCYTE# 0.8 X10e3 (0-1.0); MONOCYTE% 5.4 % (3.0-12.0); NEUTROPHIL% 78.3 % (40-75); PLATELET COUNT 382 X10e3 (140-420); RED CELL DISTRIBUTION WIDTH 16.2 % (11.0-15.5); WHITE BLOOD COUNT 15.3 X10e3 (4.0-10.5)
[2016-09-05 06:35] LABS: ALBUMIN SERUM 2.4 g/dL (3.5-5.0); BILIRUBIN,TOTAL 0.5 mg/dL (0.2-2.0); BUN/CREATININE RATIO 15.71; CALCIUM SERUM 8.5 mg/dL (8.4-10.2); CREATININE SERUM 2.1 mg/dL (0.6-1.4); GLOM FILT RATE Estimated 33.7 mL/min (>60); POTASSIUM 3.9 mmol/L (3.5-5.1); PROTEIN TOTAL SERUM 6.4 g/dL (6.0-8.3)
[2016-09-05 07:33] LABS: HYPERSEGMENTED POLYS PRESENT; PLATELET ESTIMATE NORMAL (NORMAL); TOXIC GRANULATION SL; VACUOLIZATION SL
[2016-09-06 07:16] LABS: BASOPHIL# 0.1 X10e3 (0-0.3); BASOPHIL% 0.4 % (0-2.5); EOSINOPHIL# 0.2 X10e3 (0-0.7); EOSINOPHIL% 1.2 % (0.0-7.0); HEMATOCRIT 33.1 % (38.0-50.0); HEMOGLOBIN 10.4 gm/dL (13.0-16.0); LYMPHOCYTE# 2.4 X10e3 (1.0-3.5); LYMPHOCYTE% 12.1 % (17.0-45.0); MEAN CELL VOLUME 86.5 FL (83-96); MEAN CORPUSCULAR HEMOGLOBIN 27.1 PG (28-34); MEAN CORPUSCULAR HGB CONC 31.3 g/dL (30-36); MEAN PLATELET VOLUME 8.8 FL (6.5-11.5); MONOCYTE# 1.3 X10e3 (0-1.0); MONOCYTE% 6.7 % (3.0-12.0); NEUTROPHIL# 15.7 X10e3 (1.5-7.1); NEUTROPHIL% 79.6 % (40-75); RED BLOOD COUNT 3.83 X10e (3.90-5.60); RED CELL DISTRIBUTION WIDTH 15.7 % (11.0-15.5); WHITE BLOOD COUNT 19.8 X10e3 (4.0-10.5)
[2016-09-06 08:02] LABS: DIFF IND NO; PLATELET COUNT 405 X10e3 (140-420)
[2016-09-06 09:31] LABS: ALBUMIN SERUM 2.6 g/dL (3.5-5.0); BILIRUBIN,TOTAL 0.5 mg/dL (0.2-2.0); BUN/CREATININE RATIO 14.28; CALCIUM SERUM 8.5 mg/dL (8.4-10.2); CREATININE SERUM 2.1 mg/dL (0.6-1.4); GLOM FILT RATE Estimated 33.7 mL/min (>60); POTASSIUM 4.4 mmol/L (3.5-5.1); PROTEIN TOTAL SERUM 6.9 g/dL (6.0-8.3)
[2016-09-06 15:20] LABS: ARTERIAL BLD GAS O2 SATURATION 96.7 % (90.0-100.0); ARTERIAL BLOOD GAS ALLEN TEST NORMAL; ARTERIAL BLOOD GAS CARBOXY HB 0.7 %sat (0.0-9.0); ARTERIAL BLOOD GAS MET HB 0.6 %sat (0.0-2.0); ARTERIAL BLOOD GAS PCO2 28.5 mmHg (35.0-45.0); ARTERIAL BLOOD GAS PO2 96.1 mmHg (80.0-100); ARTERIAL BLOOD GAS pH 7.434 (7.350-7.450); ARTERIAL DRAW? YES
[2016-09-06 15:21] LABS: ARTERIAL BLOOD GAS ART SITE RIGHT RADIAL; ARTERIAL BLOOD GAS DELIVERY NASAL CANNULA
== END 2016-09-08 10:20 | disposition expired | DRG 61 ==
LOC: CED 22:52 → CICCU3 23:58 → CEDOF 23:58 → CED 08-29 00:39 → CEDOF 08-29 00:39 → CICCU3 08-29 10:30 → CEDOF 08-29 10:30 → C3A PCU 09-01 18:21 → CICCU2 09-03 15:31 → C3A PCU 09-05 18:31
PROVIDERS: Emergency Medicine; Family Medicine; Internal Medicine
PROC: 3E03317 Introduction of Other Thrombolytic into Peripheral Vein, Percutaneous Approach (ICD-10-PCS; principal; 2016-08-28)
PROC: B24BYZZ Ultrasonography of Heart with Aorta using Other Contrast (ICD-10-PCS; 2016-08-30)
PROC: 0DH63UZ Insertion of Feeding Device into Stomach, Percutaneous Approach (ICD-10-PCS; 2016-09-02)
PROC: 0DJ08ZZ Inspection of Upper Intestinal Tract, Via Natural or Artificial Opening Endoscopic (ICD-10-PCS; 2016-09-02)
DX: I63.511 Cerebral infarction due to unspecified occlusion or stenosis of right middle cerebral artery (principal); G92 Toxic encephalopathy; J69.0 Pneumonitis due to inhalation of food and vomit; A41.9 Sepsis, unspecified organism; G81.94 Hemiplegia, unspecified affecting left nondominant side; N17.9 Acute kidney failure, unspecified; N18.3 Chronic kidney disease, stage 3 (moderate); N13.30 Unspecified hydronephrosis; N39.0 Urinary tract infection, site not specified; R13.10 Dysphagia, unspecified; M54.9 Dorsalgia, unspecified; G89.29 Other chronic pain; K21.9 Gastro-esophageal reflux disease without esophagitis; I12.9 Hypertensive chronic kidney disease with stage 1 through stage 4 chronic kidney disease, or unspecified chronic kidney disease; E78.5 Hyperlipidemia, unspecified; Z96.652 Presence of left artificial knee joint; E66.9 Obesity, unspecified; R29.713 NIHSS score 13; D64.89 Other specified anemias; R31.0 Gross hematuria; N40.1 Benign prostatic hyperplasia with lower urinary tract symptoms; R33.8 Other retention of urine; K29.70 Gastritis, unspecified, without bleeding; T45.615A Adverse effect of thrombolytic drugs, initial encounter; Z68.30 Body mass index [BMI] 30.0-30.9, adult
CPT/HCPCS: 36600; 70450; 71010; 71250; 74000; 74176; 74230; 80048; 80053; 80061; 81003; 82140; 82565; 82607; 82803; 82947; 83036; 83605; 83735; 83930; 83935; 84443; 85025; 85027; 85610; 85730; 87040; 87086; 92507; 92523-GN; 92526; 92610; 92611; 93005; 93306; 93880; 94760; 94761; 96365; 97110; 97112; 97161; 97167; 97530; 99291; C9113; G8978-GP; G8979-GP; G8987-GO; G8988-GO; G8996-GN; G8997-GN; J0696; J1644; J1815; J2060; J2270; J2310; J2405; J2543; J2997; J3420; J3490